=== PATIENT | female | born 1985 | race Caucasian/White ===

== ENCOUNTER 2020-04-02 18:13 | Emergency (ER) | payer BC ==
[2020-04-02] MEDS ORDERED: ONDANSETRON ODT 4 MG TAB PO STA (18:51)
--- NOTE | 2020-04-02 19:41 | ED ---
General Adult HPI - General Chief complaint: Recheck/Abnormal Lab/Rx Stated complaint: mastitis Time Seen by Provider: 04/02/20 19:03 Source: patient Mode of arrival: ambulatory Limitations: no limitations - History of Present Illness Initial comments: 34-year-old female patient presents to the emergency department today for evaluation of fever and left-sided but redness and tenderness. Patient is 2 weeks and is breast-feeding. She states that tonight last night she started to develop discomfort to the left breast. States she has been a ttempting to feed throughout the day and she is not getting much milk production. States that she went to urgent care this afternoon and they were concerned she may have developed an abscess so they sent her here for further evaluation. Patient states temperature has been as high as 103F. States she has taken Tylenol with last dose being at 4:45 this afternoon. She is unable to take NSAIDs due to ALLERGY. She denies any hematuria, dysuria, urinary frequency, urinary urgency. She did have a states that her incision is healing well with no drainage or redness. She denies any abnormal vaginal discharge or bleeding. Patient denies any recent rash, cough, shortness of breath, chest pain, abdominal pain, nausea, vomiting, diarrhea, constipation, back pain, numbness, tingling, headache, visual changes, or any other complaints. - Related Data Home Medications Medication Instructions Recorded Confirmed Acetaminophen [Tylenol] 650 mg PO Q4H PRN 04/02/20 04/02/20 Loratadine 10 mg PO DAILY 04/02/20 04/02/20 [id number] Acid 1 cap PO DAILY 04/02/20 04/02/20 [-U Capsule (formulary)] Previous Rx's Medication Instructions Recorded Cephalexin [Keflex] 500 mg PO Q6HR #40 cap 04/02/20 Allergies Allergy/AdvReac Type Severity Reaction Status Date / Time NSAIDS (Non-Steroidal Allergy Anaphylaxis Verified 04/02/20 22:02 Anti-Inflamma Review of Systems ROS Statement: Those systems with pertinent positive or pertinent negative responses have been documented in the HPI. ROS Other: All systems not noted in ROS Statement are negative. Past Medical History Past Medical History: No Reported History History of Any Multi-Drug Resistant Organisms: None Reported Past Surgical History: Section Past Psychological History: No Psychological Hx Reported Smoking Status: Never smoker Past Alcohol Use History: None Reported Past Drug Use History: None Reported General Exam Limitations: no limitations General appearance: alert, in no apparent distress, other (This is a well- developed, well-nourished adult female patient in no acute distress. Vital signs upon presentation are temperature 100.3F, pulse 99, respirations 18, blood pressure 110/69, pulse ox 99% on room air.) Eye exam: Present: normal appearance, PERRL, EOMI. Absent: scleral icterus, conjunctival injection, periorbital swelling Respiratory exam: Present: normal lung sounds bilaterally. Absent: respiratory distress, wheezes, rales, rhonchi, stridor Cardiovascular Exam: Present: regular rate, normal rhythm, normal heart sounds. Absent: systolic murmur, diastolic murmur, rubs, gallop, clicks GI/Abdominal exam: Present: soft, normal bowel sounds, other (Suprapubic incision is well approximated, no erythema, no drainage.). Absent: distended, tenderness, guarding, rebound, rigid Neurological exam: Present: alert, oriented X3, CN II-XII intact Psychiatric exam: Present: normal affect, normal mood Skin exam: Present: warm, dry, intact, normal color, other (There is erythema over the lower portion of the left breast, area is tender to touch, hot to touch, there is elongated area of induration, possibly fluid collection. ). Absent: rash Course Vital Signs 04/02/20 04/02/20 04/02/20 18:26 19:54 19:57 Temperature 100.3 F H 102.2 F H Pulse Rate 99 110 H Respiratory 18 20 Rate Blood Pressure 110/69 O2 Sat by Pulse 99 96 Oximetry 04/02/20 04/02/20 04/02/20 20:00 20:38 21:35 Temperature 103.0 F H 103.4 F H Pulse Rate 103 H 104 H 107 H Respiratory 18 18 16 Rate Blood Pressure 105/55 108/72 99/65 O2 Sat by Pulse 99 99 98 Oximetry Medical Decision Making - Medical Decision Making 34-year-old female patient presents to the emergency department today for evaluation of left breast redness, tenderness and fever. Patient states symptoms started through the night last night. Physical examination did reveal some erythema over the underside of the left breast. Palpation did reveal swelling and a small area of induration. Labs reviewed and did reveal elevated white blood cell count of 15.6. Ultrasound of the breast was obtained and did reveal a 2 cm area that was hypoechoic and probably phlegmon. Abscess is less likely but possible. Patient did have temperature is elevated in the department up to 103.4. Urinalysis also showed no evidence for mild urinary tract infection. She was given an IM dose of Rocephin at urgent care. We did give dose of Keflex here. She'll be discharged with Keflex for UTI. This will also cover staph species for mastitis. She is instructed to contact her OBGYN in the morning and inform her of symptoms and findings. She is instructed to do warm compresses to the left breast and to continue attempting to feed and pump on the left side. Return parameters were discussed in detail. She verbalizes understanding and agrees with this plan. I did discuss the case in detail with my attending physician Dr. Babb who recommends discharge with follow up. - Lab Data Result diagrams: 04/02/20 19:27 04/02/20 19:27 Lab Results 04/02/20 04/02/20 04/02/20 Range/Units 19:27 19:27 19:27 WBC 15.6 H (3.8-10.6) k/uL RBC 5.08 (3.80-5.40) m/uL Hgb 13.9 (11.4-16.0) gm/dL Hct 44.2 (34.0-46.0) % MCV 87.1 (80.0-100.0) fL MCH 27.3 (25.0-35.0) pg MCHC 31.4 (31.0-37.0) g/dL RDW 12.3 (11.5-15.5) % Plt Count 384 (150-450) k/uL Neutrophils % 93 % Lymphocytes % 3 % Monocytes % 4 % Eosinophils % 1 % Basophils % 0 % Neutrophils # 14.5 H (1.3-7.7) k/uL Lymphocytes # 0.4 L (1.0-4.8) k/uL Monocytes # 0.6 (0-1.0) k/uL Eosinophils # 0.1 (0-0.7) k/uL Basophils # 0.1 (0-0.2) k/uL Sodium 133 L (137-145) mmol/L Potassium 3.9 (3.5-5.1) mmol/L Chloride 102 (98-107) mmol/L Carbon Dioxide 23 (22-30) mmol/L Anion Gap 8 mmol/L BUN 15 (7-17) mg/dL Creatinine 0.79 (0.52-1.04) mg/dL Est GFR (CKD-EPI)AfAm >90 (>60 ml/min/1.73 sqM) Est GFR (CKD-EPI)NonAf >90 (>60 ml/min/1.73 sqM) Glucose 108 H (74-99) mg/dL Plasma Lactic Acid Cristian 1.1 (0.7-2.0) mmol/L Calcium 9.2 (8.4-10.2) mg/dL Total Bilirubin 1.3 (0.2-1.3) mg/dL AST 32 (14-36) U/L ALT 24 (4-34) U/L Alkaline Phosphatase 109 (38-126) U/L Total Protein 6.8 (6.3-8.2) g/dL Albumin 4.0 (3.5-5.0) g/dL Urine Color Urine Appearance (Clear) Urine pH (5.0-8.0) Ur Specific [place] (1.001-1.035) Urine Protein (Negative) Urine Glucose (UA) (Negative) Urine Ketones (Negative) Urine Blood (Negative) Urine Nitrite (Negative) Urine Bilirubin (Negative) Urine Urobilinogen (<2.0) mg/dL Ur Leukocyte Esterase (Negative) Urine RBC (0-5) /hpf Urine WBC (0-5) /hpf Ur Squamous Epith Cells (0-4) /hpf Urine Mucus (None) /hpf 04/02/20 Range/Units 21:35 WBC (3.8-10.6) k/uL RBC (3.80-5.40) m/uL Hgb (11.4-16.0) gm/dL Hct (34.0-46.0) % MCV (80.0-100.0) fL MCH (25.0-35.0) pg MCHC (31.0-37.0) g/dL RDW (11.5-15.5) % Plt Count (150-450) k/uL Neutrophils % % Lymphocytes % % Monocytes % % Eosinophils % % Basophils % % Neutrophils # (1.3-7.7) k/uL Lymphocytes # (1.0-4.8) k/uL Monocytes # (0-1.0) k/uL Eosinophils # (0-0.7) k/uL Basophils # (0-0.2) k/uL Sodium (137-145) mmol/L Potassium (3.5-5.1) mmol/L Chloride (98-107) mmol/L Carbon Dioxide (22-30) mmol/L Anion Gap mmol/L BUN (7-17) mg/dL Creatinine (0.52-1.04) mg/dL Est GFR (CKD-EPI)AfAm (>60 ml/min/1.73 sqM) Est GFR (CKD-EPI)NonAf (>60 ml/min/1.73 sqM) Glucose (74-99) mg/dL Plasma Lactic Acid Cristian (0.7-2.0) mmol/L Calcium (8.4-10.2) mg/dL Total Bilirubin (0.2-1.3) mg/dL AST (14-36) U/L ALT (4-34) U/L Alkaline Phosphatase (38-126) U/L Total Protein (6.3-8.2) g/dL Albumin (3.5-5.0) g/dL Urine Color Yellow Urine Appearance Clear (Clear) Urine pH 5.5 (5.0-8.0) Ur Specific [place] 1.019 (1.001-1.035) Urine Protein Negative (Negative) Urine Glucose (UA) Negative (Negative) Urine Ketones 3+ H (Negative) Urine Blood Moderate H (Negative) Urine Nitrite Negative (Negative) Urine Bilirubin Negative (Negative) Urine Urobilinogen <2.0 (<2.0) mg/dL Ur Leukocyte Esterase Large H (Negative) Urine RBC 1 (0-5) /hpf Urine WBC 25 H (0-5) /hpf Ur Squamous Epith Cells <1 (0-4) /hpf Urine Mucus Rare H (None) /hpf - Radiology Data Radiology results: report reviewed, image reviewed Ultrasound of the left breast is obtained. Report was reviewed in its entirety. Impression by Dr. Healy shows hypoechoic irregular area in the area of concern could be a phlegmon.. Viscous abscess should however be considered in this patient with symptoms of an abscess. Disposition Clinical Impression: Mastitis, left, acute, UTI (urinary tract infection) Disposition: HOME SELF-CARE Condition: Good Instructions (If sedation given, give patient instructions): Mastitis (ED), Urinary Tract Infection in Women (ED) Additional Instructions: Continue taking Tylenol for fever control. Apply warm compresses to the left breast and continue attempting to pump and feet on the left side. Call your [employer] first thing in the morning, you should be able to reach her through the answering services to discuss diagnosis and her recommendations. Complete antibiotic prescriptions in full. Return to the emergency department for any new, worsening, or concerning symptoms. Prescriptions: Cephalexin [Keflex] 500 mg PO Q6HR #40 cap Is patient prescribed a controlled substance at d/c from ED?: No Referrals: Tania Cameron MD [Primary Care Provider] - 1-2 days Alessia Perez MD [REFERRING] - 1-2 days Time of Disposition: 22:09
[2020-04-02] MEDS: SODIUM CHLORIDE 0.9% 500 ML 500 ML IV SCH ×3 (19:51→21:24)
[2020-04-02 20:18] LABS: ALT 24 U/L (4-34); AST 32 U/L (14-36); African American GFR (CKD) >90 (>60 ml/min/1.73 sqM); Alkaline Phosphatase 109 U/L (38-126); Anion Gap 8 mmol/L; Blood Urea Nitrogen 15 mg/dL (7-17); Calcium 9.2 mg/dL (8.4-10.2); Carbon Dioxide 23 mmol/L (22-30); Chloride 102 mmol/L (98-107); Glucose 108 mg/dL (74-99); Non-African American GFR(CKD) >90 (>60 ml/min/1.73 sqM); Potassium 3.9 mmol/L (3.5-5.1); Sodium 133 mmol/L (137-145); Total Bilirubin 1.3 mg/dL (0.2-1.3); Total Protein 6.8 g/dL (6.3-8.2)
[2020-04-02 20:36] LABS: Basophils # (A) 0.1 k/uL (0-0.2); Basophils % (A) 0 %; Eosinophils # (A) 0.1 k/uL (0-0.7); Eosinophils % (A) 1 %; HCT 44.2 % (34.0-46.0); HGB 13.9 gm/dL (11.4-16.0); Lymphocytes # (A) 0.4 k/uL (1.0-4.8); Lymphocytes % (A) 3 %; MCH 27.3 pg (25.0-35.0); MCHC 31.4 g/dL (31.0-37.0); MCV 87.1 fL (80.0-100.0); Mean Platelet Volume 7.7; Monocytes # (A) 0.6 k/uL (0-1.0); Monocytes % (A) 4 %; Neutrophils # (A) 14.5 k/uL (1.3-7.7); Neutrophils % (A) 93 %; Platelet Count 384 k/uL (150-450); RBC 5.08 m/uL (3.80-5.40); RDW 12.3 % (11.5-15.5); WBC 15.6 k/uL (3.8-10.6)
--- NOTE | 2020-04-02 21:02 | USB ---
Left breast ultrasound. History redness. Swelling. Comparison none. FINDINGS: There is a hypoechoic irregular area that measures 4 cm in maximum dimension in the inferior left rosa ast zone B. This was avascular or hypovascular. I do not see any significant posterior enhancement to suggest that this is fluid. IMPRESSION: Hypoechoic irregular area in the area of concern could be a phlegmon. Very viscous abscess should how ever be considered in this patient with symptoms of an abscess..
[2020-04-02] MEDS ORDERED: ACETAMINOPHEN TAB 500 MG TAB PO STA (21:28)
[2020-04-02 21:35] VITALS: RESP 16
[2020-04-02 21:54] LABS: Appearance,Urine Clear (Clear); Bilirubin,Urine Negative (Negative); Blood,Urine Moderate (Negative); Color,Urine Yellow; Glucose,Urine (UA) Negative (Negative); Ketones,Urine 3+ (Negative); Leukocyte Esterase,Urine Large (Negative); Mucus,Urine Rare /hpf; Nitrite,Urine Negative (Negative); PH, Urine 5.5 (5.0-8.0); Protein,Urine Negative (Negative); RBC,Urine 1 /hpf (0-5); Specific Gravity,Urine 1.019 (1.001-1.035); Squamous Epithelial Cell,Urine <1 /hpf (0-4); Urobilinogen,Urine <2.0 mg/dL (<2.0); WBC,Urine 25 /hpf (0-5)
[2020-04-02] MEDS ORDERED: SULFAMETH-TMP DS STARTER PACK 2 TAB BTL PO STA (22:01)
[2020-04-02] MEDS ORDERED: CEPHALEXIN 500MG STARTER PACK 4 CAP BTL PO STA (22:01)
[2020-04-02] MEDS ORDERED: DICLOXACILLIN 250 MG CAPSULE PO STA (22:10)
[2020-04-02 22:30] VITALS: BP 118/65; PULSE 72; TEMP 102.9
== END 2020-04-02 22:30 | disposition home or self-care (01) ==
LOC: EC 18:13
DX: N61.0 Mastitis without abscess (principal); N39.0 Urinary tract infection, site not specified; Z88.6 Allergy status to analgesic agent
CPT/HCPCS: 36415; 80053; 81001; 83605; 85025; 87040; 87086; 96360; 96361; 99284

== ENCOUNTER 2023-02-16 12:05 | Outpatient (CLI) | payer BC ==
[2023-02-16] MEDS: LORATADINE 10 MG TAB PO STA (12:50)
[2023-02-16 13:37] LABS: ALT 19 U/L (4-34); AST 30 U/L (14-36)
[2023-02-16 14:07] VITALS: BP 112/58; PULSE 71; RESP 18; TEMP 97.6
--- NOTE | 2023-04-13 09:29 | P.MSEPDOC ---
Presenting Problems - Arrival Data Date of Arrival on Unit: 02/16/23 Time of Arrival on Unit: 12:05 Mode of Transport: Ambulatory - Complaint OB-Reason for Admission/Chief Complaint: Other Comment: itching, hands & feet Medical History - Information : 3 Para: 2 Term: 2 : 0 Abortions: Spontaneous or Elective: 0 Number of Living Children: 2 - Gestational Age Gestational Age by ANTHONY (wks/days): 28 Weeks and 0 Days - History Comment: Review of Systems - Review of Systems Constitutional: No problems Breast: No problems ENT: No problems Cardiovascular: No problems Respiratory: No problems Gastrointestinal: No problems Genitourinary: No problems Musculoskeletal: No problems Neurological: No problems Skin: No problems Vital Signs - Temperature Temperature: 97.6 F Temperature Source: Temporal Artery Scan - Pulse Right Sitting Brachial Pulse Rate: 71 Pulse Assessment Method: Automatic Cuff - Respirations Respiratory Rate: 18 Oxygen Delivery Method: Room Air O2 Sat by Pulse Oximetry: 97 - Blood Pressure Right Arm Sitting Blood Pressure: 112/58 Blood Pressure Mean: 76 Blood Pressure Source: Automatic Cuff Medical Screen Scoring - Assessment - Baby A Baseline FHR: 120 Heart Rate - NICHD Category: Category I (Normal) NST: Reactive Physician Notification - Physician Notified Physician Notified Date: 02/16/23 Physician Notified Time: 12:30 Physician: Mary Hou New Order Received: Yes - Notification Comment Comment: DC home. Benedryl as directed and follow up with bile acids. Maternal Triage Index - Maternal Triage Index Presenting for scheduled procedure w/no complaint: No - Stat/Priority 1 Stat Priority 1: No - Urgent/Priority 2 Urgent Priority 2: No - Prompt/Priority 3 Prompt Priority 3: No - Non-Urgent/Priority 4 Non-Urgent Priority 4: Yes Criteria Met for Priority 4: itching. AST and ALT WNl today. Bile acids sent and pending. Disposition - Disposition OB Disposition: Discharge to home Discharge Date: 02/16/23 Discharge Time: 13:55 I agree with the RN Medical Screening Exam: Yes Case reviewed; plan agreed upon as documented in EMR&OBIX.: Yes Diagnosis: RELATED CONDITIONS, UNSPECIFIED, THIRD TRIMESTER
== END 2023-02-16 14:07 | disposition home or self-care (01) ==
LOC: FBPOP 12:05
PROVIDERS: ATTEND Obstetrics & Gynecology Obstetrics
DX: O26.893 Other specified pregnancy related conditions, third trimester (principal); L29.9 Pruritus, unspecified; Z3A.28 28 weeks gestation of pregnancy; Z88.0 Allergy status to penicillin; Z88.8 Allergy status to other drugs, medicaments and biological substances
CPT/HCPCS: 59025; 82239; 84450; 84460; 99213

== ENCOUNTER 2023-03-04 17:20 | Outpatient (CLI) | payer BC ==
[2023-03-04 18:26] VITALS: BP 122/60; PULSE 86; RESP 18; TEMP 97.5
--- NOTE | 2023-03-05 09:22 | P.MSEPDOC ---
Presenting Problems - Arrival Data Date of Arrival on Unit: 03/04/23 Time of Arrival on Unit: 17:20 Mode of Transport: Ambulatory - Complaint OB-Reason for Admission/Chief Complaint: Acute Nausea/Vomiting Comment: cramping post n/v. Pt eating and drinking since 0600 today Medical History - Information : 3 Para: 2 Term: 2 : 0 Abortions: Spontaneous or Elective: 0 Number of Living Children: 2 - Gestational Age Gestational Age by ANTHONY (wks/days): 30 Weeks and 2 Days Review of Systems - Review of Systems Constitutional: No problems Breast: No problems ENT: No problems Cardiovascular: No problems Respiratory: No problems Gastrointestinal: No problems Genitourinary: No problems Musculoskeletal: No problems Neurological: No problems Skin: No problems Vital Signs - Temperature Temperature: 97.5 F Temperature Source: Temporal Artery Scan - Pulse Right Sitting Brachial Pulse Rate: 86 Pulse Assessment Method: Automatic Cuff - Respirations Respiratory Rate: 18 Oxygen Delivery Method: Room Air O2 Sat by Pulse Oximetry: 96 - Blood Pressure Right Arm Sitting Blood Pressure: 122/60 Blood Pressure Mean: 80 Blood Pressure Source: Automatic Cuff Medical Screen Scoring - Assessment - Baby A Baseline FHR: 125 Heart Rate - NICHD Category: Category I (Normal) NST: Reactive Physician Notification - Physician Notified Physician Notified Date: 03/04/23 Physician Notified Time: 18:15 Physician: Betty Covington Order Received: Yes (dc home. rest. Increase po fluids) Maternal Triage Index - Maternal Triage Index Presenting for scheduled procedure w/no complaint: No - Stat/Priority 1 Stat Priority 1: No - Urgent/Priority 2 Urgent Priority 2: No - Prompt/Priority 3 Prompt Priority 3: No - Non-Urgent/Priority 4 Non-Urgent Priority 4: Yes Criteria Met for Priority 4: nausea/vomiting resolved. Cramping. Disposition - Disposition OB Disposition: Discharge to home Discharge Date: 03/04/23 Discharge Time: 18:25 I agree with the RN Medical Screening Exam: Yes Case reviewed; plan agreed upon as documented in EMR&OBIX.: Yes Diagnosis: nausea and vomitting
== END 2023-03-04 18:25 | disposition home or self-care (01) ==
LOC: FBPOP 17:20
PROVIDERS: ATTEND Obstetrics & Gynecology
DX: O21.9 Vomiting of pregnancy, unspecified (principal); Z3A.30 30 weeks gestation of pregnancy; Z88.0 Allergy status to penicillin; Z88.6 Allergy status to analgesic agent
CPT/HCPCS: 59025; 99213

== ENCOUNTER 2023-04-20 17:21 | Outpatient (CLI) | payer BC ==
[2023-04-20 17:58] LABS: Appearance,Urine Clear (Clear); Bilirubin,Urine Negative (Negative); Blood,Urine Negative (Negative); Color,Urine Colorless; Glucose,Urine (UA) Negative (Negative); Ketones,Urine Negative (Negative); Leukocyte Esterase,Urine Negative (Negative); Nitrite,Urine Negative (Negative); PH, Urine 7.5 (5.0-8.0); Protein,Urine Negative (Negative); Specific Gravity,Urine 1.011 (1.001-1.035); Urobilinogen,Urine <2.0 mg/dL (<2.0)
[2023-04-20 18:27] VITALS: BP 124/71; PULSE 79; RESP 18; TEMP 98.1
--- NOTE | 2023-04-27 10:49 | P.MSEPDOC ---
Presenting Problems - Arrival Data Date of Arrival on Unit: 04/20/23 Time of Arrival on Unit: 17:21 Mode of Transport: Ambulatory - Complaint OB-Reason for Admission/Chief Complaint: Headache Comment: headache, nausea, fever this morning, generalized malaise Medical History - Information : 3 Para: 2 Term: 2 : 0 Abortions: Spontaneous or Elective: 0 Number of Living Children: 2 - Gestational Age Gestational Age by ANTHONY (wks/days): 37 Weeks and 0 Days Review of Systems - Review of Systems Constitutional: No problems Breast: No problems ENT: No problems Cardiovascular: No problems Respiratory: No problems Gastrointestinal: No problems Genitourinary: No problems Musculoskeletal: No problems Neurological: No problems Skin: No problems Vital Signs - Temperature Temperature: 98.1 F Temperature Source: Oral - Pulse Right Sitting Brachial Pulse Rate: 79 Pulse Assessment Method: Automatic Cuff - Respirations Respiratory Rate: 18 Oxygen Delivery Method: Room Air O2 Sat by Pulse Oximetry: 97 - Blood Pressure Right Arm Sitting Blood Pressure: 124/71 Blood Pressure Mean: 88 Blood Pressure Source: Automatic Cuff Medical Screen Scoring - Cervical Exam Dilation (cm): 1 Effacement (%): 50 Station: -2 Membranes: Intact - Assessment - Baby A Baseline FHR: 120 Heart Rate - NICHD Category: Category I (Normal) NST: Reactive Physician Notification - Physician Notified Physician Notified Date: 04/20/23 Physician Notified Time: 18:20 Physician: Junior Moore Order Received: Yes (dc home) Maternal Triage Index - Maternal Triage Index Presenting for scheduled procedure w/no complaint: No - Stat/Priority 1 Stat Priority 1: No - Urgent/Priority 2 Urgent Priority 2: No - Prompt/Priority 3 Prompt Priority 3: No - Non-Urgent/Priority 4 Non-Urgent Priority 4: Yes Criteria Met for Priority 4: fever this morning, no cervical change, vitals WNL, UA reviewed. Disposition - Disposition OB Disposition: Discharge to home Discharge Date: 04/20/23 Discharge Time: 18:24 I agree with the RN Medical Screening Exam: Yes Physician's MSE Comment: I have neither seen nor examined the patient. Case reviewed; plan agreed upon as documented in EMR&OBIX.: Yes Diagnosis: RELATED CONDITIONS, UNSPECIFIED, THIRD TRIMESTER
== END 2023-04-20 18:24 | disposition home or self-care (01) ==
LOC: FBPOP 17:21
PROVIDERS: ATTEND Obstetrics & Gynecology
DX: O26.893 Other specified pregnancy related conditions, third trimester (principal); R51.9 Headache, unspecified; R11.0 Nausea; R50.9 Fever, unspecified; Z3A.37 37 weeks gestation of pregnancy; Z88.6 Allergy status to analgesic agent; Z88.0 Allergy status to penicillin
CPT/HCPCS: 59025; 81003; 99213

== ENCOUNTER 2023-05-11 15:36 | Inpatient (IN) | payer BC ==
[2023-05-21] MEDS ORDERED: TRANEXAMIC 1,000 MG/100ML-NACL 1,000 MG in EMPTY BAG 1 BAG IV PRN (06:40)
[2023-05-21] MEDS ORDERED: LIDOCAINE 0.5% (PF) 5 MG/ML (50 ML SDV) SQ PRN (06:40)
[2023-05-21] MEDS ORDERED: miSOPROStoL 200 MCG TAB PO PRN (06:40)
[2023-05-21] MEDS ORDERED: TERBUTALINE 1 MG/ML VIAL SQ PRN (06:40)
[2023-05-21] MEDS ORDERED: OXYTOCIN 10 UNIT/ML 1 ML VIAL IM PRN (06:40)
[2023-05-21] MEDS ORDERED: METHYLERGONOVINE 0.2 MG/ML 1 ML AMP IM PRN (06:40)
[2023-05-21] MEDS ORDERED: CARBOPROST TROMETHAMINE 250 MCG/ML 1 ML AMP IM PRN (06:40)
[2023-05-21] MEDS ORDERED: OXYTOCIN 30 UNITS/500 ML NS 30 UNIT in SALINE 1 500ML.BAG IV SCH (06:45)
[2023-05-21] MEDS: LACTATED RINGERS 1,000 ML IV SCH ×3 (06:49→13:00)
[2023-05-21 07:06] LABS: Basophils % (A) 0 %; Eosinophils # (A) 0.2 k/uL (0-0.7); Eosinophils % (A) 2 %; HCT 36.4 % (34.0-46.0); HGB 12.1 gm/dL (11.4-16.0); Lymphocytes # (A) 1.7 k/uL (1.0-4.8); Lymphocytes % (A) 23 %; MCH 28.7 pg (25.0-35.0); MCHC 33.2 g/dL (31.0-37.0); MCV 86.4 fL (80.0-100.0); Mean Platelet Volume 9.5; Monocytes # (A) 0.5 k/uL (0-1.0); Monocytes % (A) 7 %; Neutrophils # (A) 4.8 k/uL (1.3-7.7); Neutrophils % (A) 64 %; Platelet Count 212 k/uL (150-450); RBC 4.22 m/uL (3.80-5.40); WBC 7.5 k/uL (3.8-10.6)
[2023-05-21] MEDS ORDERED: diphenhydrAMINE 50 MG/ML 1 ML VIAL IVP PRN ×2 (14:06)
[2023-05-21] MEDS ORDERED: BENZOCAINE/MENTHOL SPRAY 1 GM/SPRAY AEROSOL TOPICAL PRN (14:06)
[2023-05-21] MEDS ORDERED: diphenhydrAMINE 25 MG CAP PO PRN (14:06)
[2023-05-21] MEDS ORDERED: ZOLPIDEM 5 MG TAB PO PRN (14:06)
[2023-05-21] MEDS ORDERED: HYDROCORTISONE 2.5% RECTAL CREAM 30 GM TUBE RECTAL PRN (14:06)
[2023-05-21] MEDS ORDERED: diphenhydrAMINE 50 MG CAP PO PRN (14:06)
[2023-05-21] MEDS ORDERED: LANOLIN CREAM 5 GM TUBE TOPICAL PRN (14:06)
[2023-05-21] MEDS ORDERED: SIMETHICONE 80 MG CHEWABLE PO PRN (14:06)
--- NOTE | 2023-05-21 14:09 | P.PROBDLV ---
Vaginal Delivery Note - . Vaginal Delivery Note: This is a 37-year-old 3 para 2001 at 41-3/7 weeks that presented to labor and delivery for induction of labor secondary to postdates. Patient was admitted and Pitocin induction of labor was begun. Patient underwent amniotomy and clear fluid was obtained. Patient progressed through labor eventually becoming uncomfortable and requesting epidural placement. Epidural was placed without difficulty by the anesthesia department. Patient did get minimal relief from the epidural and progressed quickly to 9 cm. Patient began pushing once completely dilated with excellent maternal effort had delivery the head followed by the anterior/posterior shoulder and body. Spontaneous cry was noted at . After two-minute delayed the umbilical cord was doubly clamped and cut. The placenta was delivered spontaneously intact with a three-vessel cord being noted. On inspection the patient's vaginal vault a first-degree vaginal laceration and a left labial laceration were appreciated. The sites were injected with lidocaine and repaired in usual fashion with 3-0 repeat and 4-0 chromic. After closure and hemostasis was appreciated. Uterus was noted to be firm and below the umbilicus. Estimated blood loss 100 mL Patient and tolerated delivery well and are resting comfortably All counts were correct 2 at the end of the delivery.
[2023-05-21] MEDS ORDERED: IBUPROFEN 600 MG TAB PO SCH (14:15)
[2023-05-21] MEDS: ACETAMINOPHEN TAB 325 MG TAB PO PRN ×2 (14:18→20:35)
[2023-05-21 15:21] VITALS: RESP 18
[2023-05-21] MEDS: SENNOSIDES-DOCUSATE SODIUM 1 EACH TAB PO SCH (20:37)
[2023-05-22] MEDS: ACETAMINOPHEN TAB 325 MG TAB PO PRN ×2 (06:45→10:06)
[2023-05-22] MEDS: SENNOSIDES-DOCUSATE SODIUM 1 EACH TAB PO SCH (07:40)
--- NOTE | 2023-05-22 11:21 | P.DS ---
Providers Date of admission: 05/21/23 06:22 Expected date of discharge: 05/22/23 Attending physician: Mary Hou Primary care physician: Stated None - Discharge Diagnosis(es) (1) Post-dates Current Visit: Yes Status: Acute (2) Status post vaginal delivery Current Visit: Yes Status: Acute (3) Laceration, obstetrical, first degree Current Visit: Yes Status: Acute (4) Obstetric labial laceration, delivered, current hospitalization Current Visit: Yes Status: Acute Hospital Course: This is a 37-year-old 3 now para 3 that presented to labor and delivery yesterday on 05/21 at 41-3/7 weeks for induction of labor secondary to postdates. Patient has been receiving routine care which has been essentially uncomplicated. Patient elected induction of labor secondary to postdates. Patient was admitted and Pitocin induction of labor was begun. Amniotomy is performed and clear fluid was obtained. Patient did become un comfortable and requested epidural placement. Epidural was placed without difficulty by the anesthesia department. Patient got minimal relief from the epidural but was noted to be moving quickly through labor. Patient was noted to be completely dilated and began pushing. With excellent maternal effort patient had a normal spontaneous vaginal delivery of a viable male weight of 9 lbs. 5 oz. Patient did sustain a first-degree vaginal laceration along with a left labial laceration. These were repaired and hemostatic at the end of the delivery. Patient has done well . On this day #1 she is ambulating and voiding without difficulty. She is tolerating a regular diet without nausea or vomiting. She states her lochia is moderate. She is breast- feeding. Patient Condition at Discharge: Good Plan - Discharge Summary New Discharge Prescriptions: No Action Cns-Mcof-Ohuye Acid [-U Capsule (formulary)] 1 cap PO DAILY Acetaminophen Tab [Tylenol Tab] 1,000 mg PO Q6HR PRN PRN Reason: Fever And/ Or Pain Fexofenadine/Pseudoephedrine [Ginger-D 24 Hour Tablet] 1 tab PO DAILY Discharge Medication List Pbg-Omgf-Ocltq Acid [-U Capsule (formulary)] 1 cap PO DAILY 04/02/20 [History] Acetaminophen Tab [Tylenol Tab] 1,000 mg PO Q6HR PRN 04/20/23 [History] Fexofenadine/Pseudoephedrine [Ginger-D 24 Hour Tablet] 1 tab PO DAILY 05/21/23 [History] Follow up Appointment(s)/Referral(s): Mary Hou DO [Doctor of Osteopathic Medicine] - 6 Weeks Patient Instructions/Handouts: Vaginal Delivery (GEN), Vaginal Delivery (DC) Discharge Disposition: HOME SELF-CARE
--- NOTE | 2023-05-22 11:23 | P.HPOB ---
History of Present Illness H&P Date: 05/21/23 Chief Complaint: IUP @ 41 3/7 weeks, post dates 37 yo at 41 3/7 weeks that presents for induction of labor secondary to post dates. She has been recieving routine care with myself which has been essentially uncomplicated. She has a h/o LTCS with her first followed by a successful . Review of Systems Constitutional: Denies chills, Denies fatigue, Denies fever Ears, nose, mouth and throat: Denies headache Cardiovascular: Denies leg edema Respiratory: Denies dyspnea Gastrointestinal: Denies nausea, Denies vomiting Genitourinary: Reports Past Medical History Past Medical History: Asthma History of Any Multi-Drug Resistant Organisms: None Reported Past Surgical History: Adenoidectomy, Section, Cholecystectomy, Tonsillectomy Additional Past Surgical History / Comment(s): wisdom teeth removal Past Anesthesia/Blood Transfusion Reactions: No Reported Reaction Past Psychological History: No Psychological Hx Reported Smoking Status: Never smoker Past Alcohol Use History: None Reported Past Drug Use History: None Reported - Past Family History Sister(s) Family Medical History: Diabetes Mellitus Medications and Allergies Home Medications Medication Instructions Recorded Confirmed Type Jvv-Ltdw-Vvpek Acid 1 cap PO DAILY 04/02/20 05/21/23 History [-U Capsule (formulary)] Acetaminophen Tab [Tylenol Tab] 1,000 mg PO Q6HR PRN 04/20/23 05/21/23 History Fexofenadine/Pseudoephedrine 1 tab PO DAILY 05/21/23 05/21/23 History [Ginger-D 24 Hour Tablet] Allergies Allergy/AdvReac Type Severity Reaction Status Date / Time NSAIDS (Non-Steroidal Allergy Anaphylaxis Verified 05/21/23 06:33 Anti-Inflamma Penicillins Allergy Rash/Hives Verified 05/21/23 06:33 Exam Osteopathic Statement: *. No significant issues noted on an osteopathic structural exam other than those noted in the History and Physical/Consult. Vital Signs Temp Pulse Resp BP Pulse Ox 05/21/23 06:56 97.6 F 78 17 132/80 98 Intake and Output 05/20/23 05/21/23 05/21/23 22:59 06:59 14:59 Other: Weight 99.79 kg Targeted physical exam has been done on this date in general this is a well nourished well developed women in NAD, heart has a RRR, breathing is noted to be non labored, abdomen is gravid FHTs are category 1, contactions are noted q 3, on cervical exam -/-2 amniotomy is preformed and clear fluid is obtained Results Result Diagrams: 05/21/23 06:45 Assessment and Plan (1) Post-dates Current Visit: Yes Status: Acute Code(s): O48.0 - POST-TERM SNOMED Code(s): 74778108 Plan: 37-year-old at 41-3/7 weeks that presents for induction of labor. Patient is admitted and Pitocin induction of labor is begun. Amniotomy is performed and clear fluid was obtained. Options for analgesia are discussed and she states she would like an epidural when appropriate. Anticipate spontaneous vaginal delivery.
[2023-05-22 16:36] VITALS: BP 96/57; PULSE 71; TEMP 98.5
== END 2023-05-22 16:30 | disposition home or self-care (01) | DRG 807 ==
LOC: 4FBP 05-21 06:22
PROVIDERS: ADMIT Obstetrics & Gynecology Obstetrics; ATTEND Obstetrics & Gynecology Obstetrics
PROC: 10E0XZZ Delivery of Products of Conception, External Approach (ICD-10-PCS; principal; 2023-05-21)
PROC: 0HQ9XZZ Repair Perineum Skin, External Approach (ICD-10-PCS; 2023-05-21)
DX: O34.211 Maternal care for low transverse scar from previous cesarean delivery (principal); O70.0 First degree perineal laceration during delivery; Z37.0 Single live birth; J45.909 Unspecified asthma, uncomplicated; O48.0 Post-term pregnancy; O99.52 Diseases of the respiratory system complicating childbirth; Z3A.41 41 weeks gestation of pregnancy
CPT/HCPCS: 85025; 86850; 86900; 86901